=== PATIENT | male | born 1990 | race African-American/Black ===

== ENCOUNTER 2023-08-23 13:43 | Emergency (ER) | payer OTHER, SELFPAY ==
--- NOTE | ~2023-08-23 | XR_ITS ---
EXAMINATION: XR WRIST, RIGHT XR HAND, RIGHT CLINICAL INFORMATION: Rule out glass foreign body COMPARISON: None available. TECHNIQUE: PA, lateral, and oblique views of the right wrist and right hand FINDINGS: RIGHT HAND AND WRIST: Bandage material seen overlying the medial aspect of the mid hand adjacent to the fifth metacarpal bone. Bones are normal anatomic alignment with no acute fracture or dislocation. There are 2 tiny foreign body seen however this is in the region of the bandage material and I am uncertain if this represents a tiny sliver of glass or portion of the overlying bandage material. Seen best on the frontal view. There does appear to be a soft tissue defect in the region of the bandage. XR/XR hand wrist RT IMPRESSION: Bandage material seen overlying the medial aspect of the mid hand adjacent to the fifth metacarpal bone. There are 2 very tiny foreign bodies seen in the region of the bandage material and I am uncertain if this represents a sliver of glass or portion of the overlying bandage material.
[2023-08-23 13:51] VITALS: BP 120/80; PULSE 99; RESP 18; TEMP 37.2; O2SAT 100; BMI 26.3
--- NOTE | 2023-08-23 13:58 | ED_ITS ---
HPI - Wound/Laceration General Chief Complaint: Wound/Laceration Stated Complaint: R hand laceration Time Seen by Provider: 08/23/23 14:01 Source: patient and family (patient's ) Mode of arrival: ambulatory Limitations: no limitations History of Present Illness HPI narrative: Patient is a 33 year old assigned male at with no reported medical history presenting to the emergency department today with a right hand laceration. Patient states that he was washing a dish in the sink when it broke and cut his hand. Patient states that he has gotten a tetanus shot in the last 5 years. Patient denies any dizziness, lightheadedness, abdominal pain, nausea, vomiting, fever, chills, blurry vision, double vision, loss of vision, chest pain, difficulty breathing, shortness of breath, back pain, night sweats, pain with urination, increased urinary frequency, increased urinary urgency, blood in her urine or stool, syncope or a near syncopal episode, bowel incontinence, bladder incontinence, bowel retention, bladder retention, or any other complaints at this time. Onset (ago): minute(s) Place: home Patient tetanus UTD: Yes Context: accidental Related Data Previous Rx's Medication Instructions Recorded amoxicillin 875 mg-potassium 1 tab PO BID 7 days #14 tabs 08/23/23 clavulanate 125 mg tablet Allergies Allergy/AdvReac Type Severity Reaction Status Date / Time No Known Allergies Allergy Verified 08/23/23 13:51 Review of Systems 2 Constitutional: Constitutional: Reports no additional constitutional complaints, Denies chills, Denies fever(s) and Denies night sweats Eyes: Eyes: Reports no additional eye complaints, Denies blurry vision, Denies change in vision, Denies diplopia, Denies eye discharge, Denies loss of vision and Denies eye pain ENT: Denies dizziness Cardiovascular: Cardiovascular: Reports no additional cardiovascular complaints, Denies chest pain, Denies lightheadedness, Denies Loss of Consciousness and Denies dyspnea Respiratory: Respiratory: Reports no additional respiratory complaints and Denies dyspnea Gastrointestinal: Gastrointestinal: Reports no additional gastrointestinal complaints, Denies abdominal pain, Denies melena, Denies hematochezia, Denies change in bowel habits and Denies change in stool character Genitourinary: Genitourinary: Reports no additional male genitourinary complaints, Denies hematuria, Denies oliguria, Denies difficulty urinating, Denies dysuria, Denies urinary frequency, Denies urinary hesitancy, Denies urinary incontinence and Denies urinary urgency Musculoskeletal: Musculoskeletal: Reports no additional musculoskeletal complaints, Denies numbness and Denies tingling Comments: right hand laceration Neurologic: Denies dizziness, Denies loss of vision, Denies numbness and Denies tingling Psychiatric: Psychiatric: Reports no additional psychiatric complaints Endocrine: Endocrine: Reports no additional endocrine complaints Hematologic/Lymphatic: Hematologic/Lymphatic: Reports no additional hematologic/lymphatic complaints Allergic/Immunologic: Allergic/Immunologic: Reports no additional allergic/immunologic complaints PMFSH Past Medical History Attestation statement: The following information was validated with the patient. (patient's validated all information.) Source: old records reviewed, obtained from family (patient's provided additional history and confirmed the history provided by the patient.) and nursing notes reviewed Social History Social History Advance Directives: No Advance Directives Information Provided: No Physical Exam 2 Vital Signs: Vital Signs: Last Vital Signs Temp 98.9 F 08/23/23 13:51 Pulse 99 08/23/23 13:51 Resp 18 08/23/23 13:51 BP 120/80 08/23/23 13:51 Pulse Ox 100 08/23/23 13:51 O2 Del Method Room Air 08/23/23 13:51 BMI result Body Mass Index 26.3 Const: General: cooperative, no acute distress, alert and awake Nutritional Appearance: well nourished Orientation/consciousness: patient oriented x3 Limitations: no limitations HEENT: Head: Yes normal to inspection and Yes atraumatic Ears: hearing grossly normal bilaterally and external ears normal General nose exam: Normal external nose present, no nasal discharge noted and no epistaxis Face and sinus: Yes normal facial exam, No abrasion and No laceration Mouth: Normal oral and palatal mucosa present, no drooling and no muffled voice Eyes: General: appearance normal, both eyes and all related structures P eriorbital: periorbital findings normal Eyelids: Yes eyelids normal C onjunctivae: conjunctivae normal Pupils: Equal, round and reactive pupils present EOM: EOMs intact bilaterally Neck: Neck: Yes normal visual inspection, Yes full ROM and Yes no lymphadenopathy Chest: Chest palpation & inspection: normal inspection of the chest Resp: Effort & Inspection: normal respiratory effort and able to speak in complete sentences GI: Inspection: Yes normal to inspection Neuro: General: patient oriented x3 and moves all extremities Cranial nerves: Yes Equal, round and reactive pupils present Cognition (Neuro): n ormal cognition Motor exam (neuro): 5/5 motor strength present throughout Sensory Exam: Normal double simultaneous stimulation for sensation C oordination: [id number] test normal Extrem: General: Yes full ROM and Yes capillary refill normal Hand/finger images: 1. 3.5cm laceration, no active bleeding. Psych: Appearance: grossly normal Mental Status: mental status grossly normal Affect: normal affect Attitude: cooperative Thought process: N ormal thought process present Thought content: Normal thought content present Insight: Good insight present (Psych) Course Course Course Narrative: Complains of right hand laceration on broken glass X-ray right hand ordered to rule out foreign body This rapid medical exam and triage pending full evaluation by ER provider with history and physical review results and disposition Medications Administered Discontinued Medications Generic Name Dose Route Start Last Admin Trade Name Juliette PRN Reason Stop Dose Admin Lidocaine HCl 10 ml 08/23/23 14:17 08/23/23 14:30 Lidocaine Hcl 1 % Mpf 5 Ml Vial SUBCUT 08/23/23 14:18 10 ml ONCE ONE Administration Medical Decision Making Medical Decision Making [facility] Narrative: Patient is a 33 year old assigned male at with no reported medical history presenting to the emergency department today with a right hand laceration. Patient's physical exam was as noted in the physical exam portion of this note. Patient's right hand x-ray showed possible retained glass however, could also be bandaging. I explained my physical exam findings as well as all test results to the patient and the patient's . I answered all questions asked by the patient and the patient's . Patient's right hand laceration was repaired, per procedure note, without incident. I stressed the importance of the patient taking his medication as prescribed. I stressed the importance of the patient following up with his primary care provider and an orthopedic provider. I stressed the importance of the patient returning to the emergency department immediately if his symptoms were to worsen or if he were to develop any dizziness, shortness of breath, difficulty breathing, chest pain, blurry vision, loss of vision, nausea, vomiting, abdominal pain, fever, chills, back pain, or any other complaints. Patient and the patient's verbalized agreement and understanding with this treatment plan and discharge. Differential Diagnosis Differential Diagnoses: The differential diagnosis associated with the presentation includes Right hand laceration Independent Interpretation I performed an independent interpretation of an: Plain X-Ray Interpretation: My interpretation is in agreement with the radiologist's impression of this imaging study. - EXAMINATION: XR WRIST, RIGHT XR HAND, RIGHT CLINICAL INFORMATION: Rule out glass foreign body COMPARISON: None available. TECHNIQUE: PA, lateral, and oblique views of the right wrist and right hand FINDINGS: RIGHT HAND AND WRIST: Bandage material seen overlying the medial aspect of the mid hand adjacent to the fifth metacarpal bone. Bones are normal anatomic alignment with no acute fracture or dislocation. There are 2 tiny foreign body seen however this is in the region of the bandage material and I am uncertain if this represents a tiny sliver of glass or portion of the overlying bandage material. Seen best on the frontal view. There does appear to be a soft tissue defect in the region of the bandage. XR/XR hand wrist RT IMPRESSION: Bandage material seen overlying the medial aspect of the mid hand adjacent to the fifth metacarpal bone. There are 2 very tiny foreign bodies seen in the region of the bandage material and I am uncertain if this represents a sliver of glass or portion of the overlying bandage material. Dictated By: Addison Fleming MD Signed By: Electronically signed by Addison Fleming MD 08/23/23 9519 Radiology Impression Discussion of test interpretation with radiology: I have reviewed the radiologist's reading. Independent Historian Clinical information obtained from an independent historian. History obtained from or confirmed by: Spouse (patient's provided additional history and confirmed the history provided by the patient.) Prescription Management I considered prescription management with: Antibiotic (patient prescribed a prophylactic antibiotic.) Procedures Laceration Laceration 1: Site: hand Side (If applicable): right Size (cm): 3.5 Description: linear Depth: simple, single layer Local Anesthetic: lidocaine 1% Amount of anesthesia used (mL): 10 Pre-repair: wound explored, irrigated extensively and deep structures intact Skin layer closed with: other (prolene) Size (cm): 5-0 Number of sutures: 4 Technique: simple, interrupted Discharge Plan Discharge Clinical Impression: Laceration Patient Disposition: Home, Self-Care Instructions: Care For Your Stitches (DC) Additional Instructions: Have your sutures removed in 7-10 days. Do NOT soak the affected area. Follow up with your primary care provider. Your x-ray showed possible pieces of glass in your hand. We are giving you antibiotics however, you also need to follow up with the hand specialist at the orthopedic group. Return to the emergency department immediately if your symptoms worsen or if you develop any dizziness, shortness of breath, difficulty breathing, chest pain, blurry vision, loss of vision, nausea, vomiting, abdominal pain, fever, chills, back pain, or any other complaints. Prescriptions: New amoxicillin-pot clavulanate 875-125 mg tablet 1 tab PO BID 7 Days Qty: 14 0RF Referrals: [facility] [place]] (Call to establish and follow up with a primary care provider. If you already have a primary care provider, please follow up with them.) [facility] [place] [facility]] (Call to establish and follow up with a primary care provider. If you already have a primary care provider, please follow up with them.) [facility] [place] [facility] [Provider Group] (Call to establish and follow up with a primary care provider. If you already have a primary care provider, please follow up with them.) [facility] [place] [facility]] (Call to establish and follow up with an orthopedic provider. ) Stand Alone Forms: Work/School Release Print Language: Kyrgyz
[2023-08-23] MEDS: Lidocaine HCl 1 % MPF 5 ML VIAL 10 ML SUBCUT (14:30)
== END 2023-08-23 14:52 | disposition home or self-care (01) ==
PROVIDERS: Emergency Provider Emergency Medicine
DX: S61.411A Laceration without foreign body of right hand, initial encounter (principal); W25.XXXA Contact with sharp glass, initial encounter; Y93.G1 Activity, food preparation and clean up; Y92.030 Kitchen in apartment as the place of occurrence of the external cause; Y99.9 Unspecified external cause status
CPT/HCPCS: 12002; 73110; 73130; 99282; 99284